=== PATIENT | male | born 1990 | race Caucasian/White ===

== ENCOUNTER 2023-08-19 07:40 | Day surgery (SDC) | payer BC, MEDICARE, OTHER, SELFPAY ==
[2023-08-19] MEDS ORDERED: Sodium Chloride 0.9% 10 ML Syringe FLUSH PRN (07:45)
[2023-08-19] MEDS: Lactated Ringers 1,000 ML IV SCH (08:06)
[2023-08-19] MEDS ORDERED: Propofol 200 MG/20 ML SDV ONE (08:30)
[2023-08-19] MEDS ORDERED: Lidocaine 2% 5 ML SDV ONE (08:30)
[2023-08-19 11:55] VITALS: BP 112/78; PULSE 66
== END 2023-08-19 10:43 | disposition home or self-care (01) ==
LOC: KA.SDS 07:40
PROVIDERS: ATTEND Family Medicine
DX: K21.00 Gastro-esophageal reflux disease with esophagitis, without bleeding (principal); E03.9 Hypothyroidism, unspecified; F41.1 Generalized anxiety disorder; F33.1 Major depressive disorder, recurrent, moderate; H90.A21 Sensorineural hearing loss, unilateral, right ear, with restricted hearing on the contralateral side; F17.210 Nicotine dependence, cigarettes, uncomplicated; Z79.899 Other long term (current) drug therapy; Z88.0 Allergy status to penicillin
CPT/HCPCS: 43239; J2704; J7120; 00731; J3490